=== PATIENT | male | born 1990 | race Caucasian/White ===

== ENCOUNTER 2022-02-03 16:28 | Emergency (ER) | payer MEDICAID ==
[~2022-02-03] VITALS: Ht 175.3 cm; Wt 71.2 kg
[2022-02-03 16:30] VITALS: BP_SYST 144
--- NOTE | 2022-02-03 16:31 | NUR ---
Patient triaged and placed in waiting room. VSS and patient appears in no acute distress at this time. Accompanied by SELF, awaiting available bed, and MD notified of need for MSE.
--- NOTE | 2022-02-03 19:56 | NUR ---
DR HUANG SUBMITED ORDERS FOR PT
[2022-02-03] MEDS ORDERED: IPRATROPIUM/ALBUTEROL SULFATE 3 ML AMPUL.NEB (DUONEB) INH ONE (20:00)
[2022-02-03] MEDS ORDERED: methylPREDNISolone SOD SUCC/PF 62.5 MG/ML VIAL IM ONE (20:00)
[2022-02-03] MEDS ORDERED: AMOX-423 PO (20:51)
[2022-02-03] MEDS ORDERED: ALBU2.5V7 INH (20:51)
[2022-02-03] MEDS ORDERED: NEBU-249 MC (20:51)
[2022-02-03] MEDS ORDERED: PRED20TA PO (20:51)
[2022-02-04 02:07] VITALS: BP_SYST 142
--- NOTE | 2022-02-04 02:08 | NUR ---
Patient given written and verbal discharge instructions and verbalizes understanding. ER MD discussed with patient the results and treatment provided. Patient in stable condition. ID arm band removed. IV catheter removed intact and dressing applied, no active bleeding. Rx of ALBUTEROL, AMOXICILLIN, NEBULIZER given. Patient educated on pain management and to follow up with PMD. Pain Scale . Opportunity for questions provided and answered. Medication side effect fact sheet provided.
== END 2022-02-04 02:08 | disposition home or self-care (01) ==
LOC: SED 16:28
DX: J32.9 Chronic sinusitis, unspecified (principal); R06.2 Wheezing; R05.9 Cough, unspecified; R51.9 Headache, unspecified; B97.89 Other viral agents as the cause of diseases classified elsewhere; Z79.899 Other long term (current) drug therapy; Z20.822 Contact with and (suspected) exposure to COVID-19
CPT/HCPCS: 99285; 71045; 87426; 36415; 93005; 94640; 96372; 87804 ×2; J2930

== ENCOUNTER 2022-06-02 18:51 | Emergency (ER) | payer MEDICAID ==
[~2022-06-02] VITALS: Ht 175.3 cm; Wt 71.7 kg
[~2022-06-02 18:51] MED LIST: ALBU2.5V7 INH; AMOX-423 PO; NEBU-249 MC; PRED20TA PO
[2022-06-02 20:21] VITALS: BP_SYST 136
--- NOTE | 2022-06-02 20:28 | NUR ---
Patient triaged and placed in waiting room. VS checked and patient appears in no acute distress at this time. Accompanied by self , awaiting available bed, and MD notified of need for MSE.
--- NOTE | 2022-06-02 20:35 | NUR ---
ER examining patient. Eye Examination done by him
[2022-06-02] MEDS ORDERED: ALBMDI INH (21:59)
[2022-06-02] MEDS ORDERED: PRED20TA PO (21:59)
[2022-06-02] MEDS ORDERED: ERYEYE RIGHT EYE (21:59)
[2022-06-02 22:37] VITALS: BP_SYST 132
--- NOTE | 2022-06-02 22:37 | NUR ---
Patient given written and verbal discharge instructions and verbalizes understanding. ER MD discussed with patient the results and treatment provided. Patient in stable condition. Rx of Albuterol inhaler, erythromycin eye ointment and prednisone sent to pharmacy of choice by ER MD. Patient educated on pain management and to follow up with PMD. Opportunity for questions provided and answered.
== END 2022-06-02 22:37 | disposition home or self-care (01) ==
LOC: SED 18:51
DX: S05.01XA Injury of conjunctiva and corneal abrasion without foreign body, right eye, initial encounter (principal); J45.909 Unspecified asthma, uncomplicated; Z79.899 Other long term (current) drug therapy; W50.0XXA Accidental hit or strike by another person, initial encounter; Y93.89 Activity, other specified; Y92.89 Other specified places as the place of occurrence of the external cause; Y99.8 Other external cause status
CPT/HCPCS: 99283

== ENCOUNTER 2023-06-12 14:29 | Inpatient (IN) | payer MEDICAID ==
[~2023-06-12] VITALS: Ht 175.3 cm; Wt 68.0 kg
[~2023-06-12 14:29] MED LIST changes: +ALBMDI INH; +ERYEYE RIGHT EYE; +FLUT16SP16 NS
[2023-06-12 14:30] VITALS: BP_SYST 129; PULSE 136; RESP 19; TEMP 98; O2SAT 96
[2023-06-12] MEDS ORDERED: ALBUTEROL SULFATE 0.083% 2.5 MG/3 ML VIAL.NEB INH ONE (14:45)
[2023-06-12 14:58] VITALS: O2SAT 98
[2023-06-12] MEDS ORDERED: NACL 0.9% 1,000 ML IV ONE (15:15)
[2023-06-12] MEDS ORDERED: IPRATROPIUM/ALBUTEROL SULFATE 3 ML AMPUL.NEB (DUONEB) INH ONE (15:15)
[2023-06-12] MEDS ORDERED: ONDANSETRON HCL 4 MG/2 ML VIAL IVP ONE (15:15)
[2023-06-12] MEDS ORDERED: methylPREDNISolone SOD SUCC/PF 62.5 MG/ML VIAL IVP ONE (15:15)
[2023-06-12 15:16] VITALS: O2SAT 94
[2023-06-12 16:03] LABS: CALCIUM 9.1 mg/dL (8.4-11.0); CREATININE 1.36 mg/dL (0.55-1.30); POTASSIUM 3.4 mmol/L (3.5-5.1)
[2023-06-12 16:09] LABS: ALBUMIN 3.4 g/dL (3.4-4.8); BILIRUBIN,DIRECT 0.1 mg/dL (0.0-0.3); TOTAL BILIRUBIN 0.3 mg/dL (0.0-1.0); TOTAL PROTEIN, SERUM 6.8 g/dL (6.4-8.3)
[2023-06-12 16:28] LABS: INFLUENZA TYPE B NEGATIVE (NEGATIVE)
[2023-06-12 16:31] LABS: INFLUENZA TYPE A Positive (NEGATIVE)
[2023-06-12 16:33] LABS: BASOPHILS % (AUTO) 0.4 % (0.0-2.0); HEMATOCRIT 42.2 % (36-54); HEMOGLOBIN 13.9 g/dL (14.0-18.0); LYMPHOCYTES # (AUTO) 0.4 K/uL (1.0-5.5); LYMPHOCYTES % (AUTO) 4.2 % (20.5-51.5); MEAN CORPUSCULAR HEMOGLOBIN 30 pg (27-31); MEAN CORPUSCULAR HGB CONC 33 % (32-36); MEAN CORPUSCULAR VOLUME 90 fL (79.0-98.0); MONOCYTES # (AUTO) 0.8 K/uL (0.0-1.0); MONOCYTES % (AUTO) 8.5 % (1.7-9.3); NEUTROPHILS # (AUTO) 8.4 K/uL (1.8-7.7); NEUTROPHILS % (AUTO) 86.9 % (40.0-70.0); PLATELET COUNT (AUTO) 338 K/uL (130-430); RED BLOOD CELL COUNT(AUTO) 4.71 MIL/uL (4.2-6.2); RED CELL DISTRIBUTION WIDTH 14.2 % (9.0-15.0); WHITE BLOOD COUNT (AUTO) 9.6 K/uL (4.8-10.8)
[2023-06-12] MEDS ORDERED: OSELTAMIVIR PHOSPHATE 75 MG CAPSULE PO ONE (17:15)
[2023-06-12] MEDS ORDERED: LORazepam 2 MG/ML VIAL IVP PRN (18:00)
[2023-06-12] MEDS ORDERED: ONDANSETRON HCL 4 MG/2 ML VIAL IVP PRN (18:00)
[2023-06-12] MEDS ORDERED: MAGNESIUM SULFATE 50 ML IV PRN (18:00)
[2023-06-12] MEDS ORDERED: DOCUSATE SODIUM 100 MG CAPSULE PO PRN (18:00)
[2023-06-12] MEDS ORDERED: POTASSIUM CHLORIDE 20 MEQ TABLET.ER PO PRN (18:00)
[2023-06-12] MEDS ORDERED: MUPIROCIN 2% TOPICAL OINTMENT 22 GM NS PRN (18:00)
[2023-06-12 18:13] VITALS: BP_SYST 129; PULSE 136; O2SAT 96
[2023-06-12] MEDS ORDERED: ACETAMINOPHEN 500 MG TABLET PO PRN ×2 (19:30)
[2023-06-12 20:00] VITALS: BP_SYST 139; PULSE 100; RESP 18; TEMP 98.8; O2SAT 98
[2023-06-12] MEDS: OSELTAMIVIR PHOSPHATE 75 MG CAPSULE PO SCH (21:00)
[2023-06-12 23:11] VITALS: BP_SYST 139; PULSE 100; RESP 18; TEMP 98.8
[2023-06-12] MEDS: ZOLPIDEM TARTRATE 5 MG TABLET PO PRN (23:34)
[2023-06-13] VITALS (8 sets, daily range): BP systolic 101–137; PULSE 81–114; RESP 18–22; TEMP 96.1–101.6; O2SAT 94–99
[2023-06-13 02:38] LABS: BARBITURATE, URINE NEGATIVE (NEG <=200); BENZODIAZEPINE, URINE NEGATIVE (NEG <=150); CANNABINOID, URINE NEGATIVE (NEG <=50); COCAINE, URINE NEGATIVE (NEG <=150); METHAMPHETAMINES SCREEN,URINE NEGATIVE (NEG <=500); OPIATE, URINE NEGATIVE (NEG <=100); PHENCYCLIDINE SCREEN,URINE NEGATIVE (NEG <=25); UR TRICYCLIC ANTIDEPRESSANTS NEGATIVE (NEG <=300); URINE AMPHETAMINE NEGATIVE (NEG <=500); URINE METHADONE NEGATIVE (NEG <=200); URINE OXYCODONE SCREEN NEGATIVE (NEG <=100)
[2023-06-13 06:27] LABS: BASOPHILS % (AUTO) 0.2 % (0.0-2.0); HEMATOCRIT 41.8 % (36-54); HEMOGLOBIN 13.7 g/dL (14.0-18.0); LYMPHOCYTES # (AUTO) 0.5 K/uL (1.0-5.5); LYMPHOCYTES % (AUTO) 5.3 % (20.5-51.5); MEAN CORPUSCULAR HEMOGLOBIN 30 pg (27-31); MEAN CORPUSCULAR HGB CONC 33 % (32-36); MEAN CORPUSCULAR VOLUME 90 fL (79.0-98.0); MONOCYTES # (AUTO) 0.5 K/uL (0.0-1.0); MONOCYTES % (AUTO) 6.2 % (1.7-9.3); NEUTROPHILS # (AUTO) 7.7 K/uL (1.8-7.7); NEUTROPHILS % (AUTO) 88.3 % (40.0-70.0); PLATELET COUNT (AUTO) 314 K/uL (130-430); RED BLOOD CELL COUNT(AUTO) 4.66 MIL/uL (4.2-6.2); RED CELL DISTRIBUTION WIDTH 14.7 % (9.0-15.0); WHITE BLOOD COUNT (AUTO) 8.8 K/uL (4.8-10.8)
[2023-06-13 06:52] LABS: CALCIUM 8.8 mg/dL (8.4-11.0); CREATININE 1.13 mg/dL (0.55-1.30); POTASSIUM 4.1 mmol/L (3.5-5.1)
[2023-06-13] MEDS: BUDESONIDE 0.5 MG/2 ML AMPUL.NEB INH SCH ×2 (07:24→20:11)
[2023-06-13] MEDS ORDERED: IBUPROFEN 600 MG TABLET PO ONE (09:15)
[2023-06-13] MEDS: OSELTAMIVIR PHOSPHATE 75 MG CAPSULE PO SCH ×2 (09:33→21:02)
[2023-06-13] MEDS: METHYLPREDNISOLONE SOD SUCC 40 MG/ML VIAL IVP SCH ×2 (09:33→20:41)
[2023-06-13] MEDS: FLUTICASONE PROPIONATE 50 mCg/SPRAY 16 GM NS SCH (09:44)
[2023-06-13] MEDS: IPRATROPIUM/ALBUTEROL SULFATE 3 ML AMPUL.NEB (DUONEB) INH PRN (20:51)
[2023-06-14 00:01] VITALS: BP_SYST 125; PULSE 77; RESP 16; TEMP 98; O2SAT 100
[2023-06-14] MEDS: ZOLPIDEM TARTRATE 5 MG TABLET PO PRN (00:01)
[2023-06-14 06:19] LABS: BASOPHILS % (AUTO) 0.2 % (0.0-2.0); HEMOGLOBIN 15.7 g/dL (14.0-18.0); LYMPHOCYTES # (AUTO) 0.9 K/uL (1.0-5.5); LYMPHOCYTES % (AUTO) 7.9 % (20.5-51.5); MEAN CORPUSCULAR HEMOGLOBIN 30 pg (27-31); MEAN CORPUSCULAR HGB CONC 33 % (32-36); MEAN CORPUSCULAR VOLUME 90 fL (79.0-98.0); MONOCYTES # (AUTO) 0.8 K/uL (0.0-1.0); MONOCYTES % (AUTO) 6.7 % (1.7-9.3); NEUTROPHILS % (AUTO) 85.2 % (40.0-70.0); PLATELET COUNT (AUTO) 328 K/uL (130-430); RED BLOOD CELL COUNT(AUTO) 5.32 MIL/uL (4.2-6.2); RED CELL DISTRIBUTION WIDTH 14.4 % (9.0-15.0); WHITE BLOOD COUNT (AUTO) 11.7 K/uL (4.8-10.8)
[2023-06-14 06:42] LABS: CALCIUM 9.2 mg/dL (8.4-11.0); CREATININE 0.88 mg/dL (0.55-1.30); POTASSIUM 4.3 mmol/L (3.5-5.1)
[2023-06-14 07:33] VITALS: O2SAT 94
[2023-06-14] MEDS: BUDESONIDE 0.5 MG/2 ML AMPUL.NEB INH SCH (07:33)
[2023-06-14] MEDS: IPRATROPIUM/ALBUTEROL SULFATE 3 ML AMPUL.NEB (DUONEB) INH PRN (07:33)
[2023-06-14 08:00] VITALS: BP_SYST 135; PULSE 82; RESP 18; TEMP 98.4; O2SAT 95
[2023-06-14] MEDS ORDERED: OSEL75CA PO (09:25)
[2023-06-14] MEDS ORDERED: PRED20TA PO (09:26)
[2023-06-14] MEDS: OSELTAMIVIR PHOSPHATE 75 MG CAPSULE PO SCH (09:31)
[2023-06-14] MEDS: METHYLPREDNISOLONE SOD SUCC 40 MG/ML VIAL IVP SCH (09:31)
[2023-06-14] MEDS: FLUTICASONE PROPIONATE 50 mCg/SPRAY 16 GM NS SCH (09:32)
[2023-06-14 11:00] VITALS: O2SAT 95
[2023-06-14 12:00] VITALS: BP_SYST 132; PULSE 80; RESP 18; TEMP 98.2; O2SAT 96
[2023-06-14 13:18] VITALS: BP_SYST 132; PULSE 80; RESP 18; TEMP 98.2; O2SAT 96
[2023-06-18] MEDS ORDERED: PRED10TA PO (11:06)
[2023-06-18] MEDS ORDERED: OSEL75CA18 PO (11:06)
== END 2023-06-14 14:40 | disposition home or self-care (01) | DRG 141 ==
LOC: SED 14:29 → SMU 18:00
PROVIDERS: ADMIT General Practice; ATTEND General Practice
DX: J45.901 Unspecified asthma with (acute) exacerbation (principal); N17.0 Acute kidney failure with tubular necrosis; R65.11 Systemic inflammatory response syndrome (SIRS) of non-infectious origin with acute organ dysfunction; E86.0 Dehydration; E87.20 Acidosis, unspecified; J10.1 Influenza due to other identified influenza virus with other respiratory manifestations; E87.6 Hypokalemia; R74.01 Elevation of levels of liver transaminase levels; D64.9 Anemia, unspecified; Z20.822 Contact with and (suspected) exposure to COVID-19; Z79.899 Other long term (current) drug therapy; Z79.2 Long term (current) use of antibiotics; R06.03 Acute respiratory distress
CPT/HCPCS: 36415; 71045; 80048; 80076; 80307; 83037; 83605; 83735; 85025; 87040; 93005; 94640; 94664; 94760; 96361; 96374; 96375; 99285; G9035; J1030; J2405; J2930; J7626